=== PATIENT | female | born 2000 | race Caucasian/White ===

== ENCOUNTER 2021-10-08 17:16 | Emergency (ER) | payer OTHER ==
[2021-10-08 17:39] VITALS: BP 101/56; PULSE 102; TEMP 97.8; BMI 25.2
[2021-10-08 18:56] LABS: PH,URINE 5.5 (5.0-8.0); URINE APPEARANCE CLEAR; URINE BILIRUBIN NEGATIVE (NEGATIVE); URINE COLOR YELLOW; URINE GLUCOSE (UA) NEGATIVE (NEGATIVE); URINE KETONE NEGATIVE (NEGATIVE); URINE LEUK ESTERASE NEGATIVE (NEGATIVE); URINE NITRITE NEGATIVE (NEGATIVE); URINE PROTEIN NEGATIVE (NEGATIVE)
[2021-10-08 19:15] LABS: BLOOD UREA NITROGEN 8.7 mg/dL (7-18); CALCIUM 9.5 mg/dL (8.5-10.1)
[2021-10-08 19:16] LABS: ALBUMIN 4.1 g/dl (3.4-5.0)
[2021-10-08 19:19] LABS: CREATININE 0.6 mg/dL (0.55-1.3)
[2021-10-08 19:20] LABS: BILIRUBIN,TOTAL 0.2 mg/dL (0.2-1); TOT PROT 7.9 g/dl (6.4-8.2)
== END 2021-10-08 21:43 | disposition home or self-care (01) ==
LOC: JER 17:16
DX: R10.2 Pelvic and perineal pain (principal); Z32.01 Encounter for pregnancy test, result positive
CPT/HCPCS: 36415; 76817-TC; 80053; 81003; 84702; 86850; 86900; 86901; 99284-25

== ENCOUNTER 2021-10-12 23:20 | Emergency (ER) | payer SELFPAY ==
[2021-10-12 23:29] VITALS: TEMP 99.1; BMI 24.2
[2021-10-13 03:09] LABS: BASO % 0.5 % (0-2.0); EOS % 1.7 % (0-4.5); HEMATOCRIT 34.7 % (32.4-45.2); LYMPH % 37.4 % (8-40); MCH 29.1 pg (25.7-33.7); MCHC 34.5 g/dl (32.0-36.0); MEAN CELL VOLUME 84.3 fl (80-96); MEAN PLT VOLUME 8.3 fl (7.5-11.1); MONO % 8.3 % (3.8-10.2); NEUT % 52.1 % (42.8-82.8); PLATELET COUNT 237 10^3/uL (134-434); RBC 4.12 M/mm3 (3.60-5.2); WHITE BLOOD COUNT 11.4 K/mm3 (4.0-10.0)
[2021-10-13 03:17] LABS: EPI CELLS >36 /uL (0-25.1); HYALINE CASTS 1 /uL (0-3.1); PH,URINE 5.5 (5.0-8.0); URINE APPEARANCE CLEAR; URINE BACTERIA 159 /uL (0-1359); URINE BILIRUBIN NEGATIVE (NEGATIVE); URINE COLOR YELLOW; URINE GLUCOSE (UA) NEGATIVE (NEGATIVE); URINE KETONE 1+ (NEGATIVE); URINE LEUK ESTERASE NEGATIVE (NEGATIVE); URINE NITRITE NEGATIVE (NEGATIVE); URINE PROTEIN NEGATIVE (NEGATIVE); URINE RBC 16 /uL (0-23.9); URINE UROBILINOGEN 0.2 mg/dL (0.2-1.0); URINE WBC 6 /uL (0-25.8)
[2021-10-13 03:31] LABS: ALBUMIN 4.1 g/dl (3.4-5.0); BLOOD UREA NITROGEN 13.3 mg/dL (7-18)
[2021-10-13 03:34] LABS: CREATININE 0.6 mg/dL (0.55-1.3)
[2021-10-13 03:36] LABS: BILIRUBIN,TOTAL 0.3 mg/dL (0.2-1); TOT PROT 7.1 g/dl (6.4-8.2)
[2021-10-13 10:50] VITALS: BP 105/59; PULSE 80
== END 2021-10-13 10:50 | disposition home or self-care (01) ==
LOC: JER 23:20
DX: N93.9 Abnormal uterine and vaginal bleeding, unspecified (principal)
CPT/HCPCS: 36415; 76817-TC; 80053; 81003; 84702; 85025; 87086; 99283-25